=== PATIENT | female | born 1960 | race Caucasian/White ===

== ENCOUNTER → 2016-07-19 | Outpatient (CLI) | payer MEDICARE, OTHER | LOC: RAD 15:19 | DX: R20.2 Paresthesia of skin (principal) | CPT/HCPCS: 73130 ==

== ENCOUNTER → 2020-02-24 | Outpatient (CLI) | payer MEDICARE, OTHER ==
[~2020-02-24] MED LIST: BIOTIN PO; HALOBETASOL TOP; MULTI VIT PO; NAPROXEN 250 M250 MG PO; NAPROXEN500 MG PO; PILOCARPINE EYEBOTH; SYSTANE EYE DROPS EYEBOTH; ULTRAM50 MG PO; VIT B12 PO; ZANAFLEX2 MG PO
== END ==
LOC: KOH-I 10:37
DX: C49.9 Malignant neoplasm of connective and soft tissue, unspecified (principal); Z89.112 Acquired absence of left hand; E04.1 Nontoxic single thyroid nodule
CPT/HCPCS: 71250

== ENCOUNTER → 2021-01-03 | Outpatient (CLI) | payer MEDICARE, OTHER | LOC: EMI 12-30 11:15 | DX: M25.511 Pain in right shoulder (principal); M75.101 Unspecified rotator cuff tear or rupture of right shoulder, not specified as traumatic; M75.41 Impingement syndrome of right shoulder | CPT/HCPCS: 73221 ==

== ENCOUNTER 2021-07-28 11:11 | Emergency (ER) | payer OTHER ==
[2021-07-28 12:41] LABS: HEMOGLOBIN 15.9 gm/dl (12.3-15.3); RED BLOOD COUNT 5.31 M/UL (4.00-5.10); WHITE BLOOD COUNT 13.9 K/UL (4.5-11.0)
[2021-07-28 13:18] LABS: BUN/CREATININE RATIO 11 (0-10)
[2021-07-28] MEDS ORDERED: AMOX TR-K CLV1 EAC4 PO (13:56)
== END 2021-07-28 14:26 | disposition home or self-care (01) ==
LOC: ER1 11:11
PROVIDERS: Physician Assistant
DX: K52.9 Noninfective gastroenteritis and colitis, unspecified (principal); Z79.82 Long term (current) use of aspirin
CPT/HCPCS: 80053; 81001; 82272; 83605; 85025; 87040; 96361; 96374; 96375; 99284; J2270; J2405